=== PATIENT | female | born 1995 | race Caucasian/White ===

== ENCOUNTER → 2019-10-16 07:36 | Outpatient (CLI) | payer OTHER, SELFPAY ==
--- NOTE | 2019-10-16 08:04 | DI.US.S_ITS ---
PROCEDURE: US OB <= 14 WEEKS FETUS INDICATIONS: DATES, VIABILITY OUTSIDE/PRIOR DATING DATA: Last menstrual period (LMP): 08/27/19. LMP-based estimated date of delivery (GARY): 06/02/20. First dating scan (date and location): Today, 10/16/19 . Estimated date of delivery (GARY) from first dating scan: 06/10/20 . TECHNIQUE: Real-time scanning was performed of the fetus and maternal pelvic organs, with image documentation. Endovaginal scanning was also performed to better visualize the fetus and maternal ovaries. COMPARISON: None. FINDINGS: Embryo: There is a single living intrauterine gestation with heart rate 115 beats per minute and crown-rump length 1.5 cm which correlates with a gestational age of 6 weeks 2 days, +/-5 days. Measurement variability in dating: +/- 4 weeks by LMP, +/- 7 days by mean sac diameter (use before 6 weeks gestation if crown-rump length not able to be measured), +/- 5 days by crown-rump length (up to 8 weeks 6 days gestation), +/- 7 days by crown-rump length (up to 13 weeks 6 days gestation). Maternal organs: Ovaries normal considering gestational status . Limited images through the kidneys demonstrate no hydronephrosis. IMPRESSION: Single living intrauterine gestation with delivery date projected to be centered on 06/10/20. Follow-up anatomic survey at 21 weeks gestation is recommended. Dictated by: Cm Bobby M.D. on 10/16/2019 at 10:51 Approved by: Cm Bobby M.D. on 10/16/2019 at 10:54
== END ==
PROVIDERS: PCP Family Medicine; Referring Provider Family Medicine; Visit Provider Family Medicine
DX: Z34.01 Encounter for supervision of normal first pregnancy, first trimester (principal); Z3A.01 Less than 8 weeks gestation of pregnancy
CPT/HCPCS: 76801; 76830

== ENCOUNTER → 2019-10-31 11:24 | Outpatient (CLI) | payer OTHER, SELFPAY ==
[2019-10-31 12:38] LABS: Appearance Urine UA CLEAR; Bilirubin Urine UA NEGATIVE (NEGATIVE); Color Urine UA YELLOW; Glucose Urine UA NEGATIVE (Negative); Ketones Urine UA TRACE (NEGATIVE); Leukocyte Esterase Urine UA TRACE (NEGATIVE); Nitrite Urine UA NEGATIVE (Negative); Occult Blood Urine UA NEGATIVE (Negative); Protein Urine UA NEGATIVE (Negative); Specific Gravity Urine UA <=1.005 (1.000-1.035); Urobilinogen Urine UA 0.2 E.U./dL (0.2)
[2019-10-31 12:41] LABS: Bacteria Urine None Seen; RBC Urine None Seen (0-5/HPF)
[2019-10-31 12:47] LABS: WBC Urine 5-10/HPF (0-5/HPF)
[2019-10-31 13:04] LABS: Add Manual Diff / Slide Review NO; Basophils Absolute Auto 0 /uL (0-100); Basophils Percent Auto 0.2 % (0-2); Eosinophils Absolute Auto 200 /uL (0-450); Eosinophils Percent Auto 2.1 % (2-4); Hematocrit 40.4 % (36-46); Lymphocytes Absolute Auto 1500 /uL (1100-4500); Lymphocytes Percent Auto 14.6 % (25-40); Mean Corpuscular HGB Conc 34.6 % (30-36); Mean Corpuscular Hemoglobin 30.3 PG (26-34); Mean Corpuscular Volume 87.5 fL (80-100); Monocytes Absolute Auto 600 /uL (0-900); Neutrophils Absolute Auto 8000 /uL (1500-7000); Neutrophils Percent Auto 77.1 % (50-75); Platelet Count 349 X10^3/uL (150-400); Red Blood Cell Count 4.62 X10^6/uL (4.0-5.2); Red Cell Distribution Width 12.6 % (11.6-14.8); White Blood Cell Count 10.4 X10^3/uL (4.5-11.0)
[2019-11-01 09:19] LABS: Varicella IgG Antibody 585 index (Immune >165)
[2019-11-02 15:34] LABS: Hepatitis B Surface Antigen NEGATIVE s/c (NEGATIVE); Rubella Antibody IgG 28.3 IU/mL (>15)
[2019-11-02 15:54] LABS: HIV 1 & 2 Ab/Ag 4th Gen Combo NEGATIVE (NEGATIVE); Hep C Virus Ab w/Reflex Quant NEGATIVE s/c (NEGATIVE)
[2019-11-03 04:36] LABS: RPR Screen Non Reactive (Non Reactive)
== END ==
PROVIDERS: PCP Family Medicine; Referring Provider Family Medicine; Visit Provider Family Medicine
DX: Z34.01 Encounter for supervision of normal first pregnancy, first trimester (principal)
CPT/HCPCS: 36415; 80055; 81003; 81015; 86787; 86803; 86850; 86900; 86901; 87086; 87389

== ENCOUNTER → 2020-01-19 07:28 | Outpatient (CLI) | payer OTHER, SELFPAY ==
--- NOTE | 2020-01-19 07:28 | DI.US.S_ITS ---
PROCEDURE: US OB >= 14 WEEKS FETUS INDICATIONS: ANATOMY OUTSIDE/PRIOR DATING DATA: Last menstrual period (LMP): 08/27/19. LMP-based estimated date of delivery (GARY): 06/02/20 First dating scan (date and location): 10/16/19 Estimated date of delivery (GARY) from first dating scan: 06/10/20 TECHNIQUE: Real-time scanning was performed of the fetus, with image documentation and biometric measurements. Endovaginal scanning: Not needed COMPARISON: 10/16/19 FINDINGS: General: A single living intrauterine gestation is present. Presentation: Vertex. Placenta: Placental position is posterior , without previa. Amniotic fluid index: 15.2 cm, normal range is 5-24 cm. heart rate: 147 beats per minute. Maternal cervical canal: 3.5 cm long. Normal lower limit is 2.5 cm. biometrics: Biparietal diameter: 4.9 cm, 20 weeks 5 days Head circumference: 18.0 cm, 20 weeks 3 days Abdominal circumference: 15.2 cm, 20 weeks 3 days Femur length: 3.5 cm, 21 weeks 0 days Estimated gestational age from initial scan: 19 weeks 4 days Composite gestational age from present scan: 20 weeks 5 days Estimated weight and percentile: 367 g, upper 95th percentile Measurement variability for biometric dating: +/- 7 days from 14 weeks to 15 weeks 6 days gestation, +/- 10 days from 16 weeks to 21 weeks 6 days gestation, +/- 2 weeks from 22 weeks to 27 weeks 6 days gestation, +/- 3 weeks for 28 weeks gestation or later. weight reference: 4500 g or EFW >90/95% is considered macrosomia or large for gestational age. EFW <10% is small for gestational age. EFW 5% or less is considered intra-uterine growth restriction. Anatomic survey: Neuro: Ventricles are non-dilated at less than 10 mm. Cisterna magna is normal at 3-11 mm. Cerebellum is normal in size and morphology. Nuchal skin fold: Normal at less than 6 mm between 14-21 weeks gestational age. Face: Nose and lips, facial profile are not well seen due to positioning. Spine: No evidence for spina bifida. Heart: 4-chambered heart is present, with normal ventricular outflow tracts. Diaphragm: Diaphragm is intact. Stomach: Left-sided stomach is present. Kidneys: No hydronephrosis. Normal is less than 5 mm in 2nd trimester, less than 7 mm in 3rd trimester. Cord: 3-vessel cord has orthotopic insertion. Bladder: Normal in size. Extremities: All 4 extremities identified. IMPRESSION: Single living intrauterine gestation with appropriate interval growth and no anomaly seen. The facial area was not well visualized due to positioning. Follow-up limited Ob ultrasound in 2 weeks is recommended to complete the anatomic survey. Please note that the current weight is at the upper 95th percentile for current gestational age. Dictated by: Cm Bobby M.D. on 01/19/2020 at 15:44 Approved by: Cm Bobby M.D. on 01/19/2020 at 15:48
== END ==
PROVIDERS: PCP Family Medicine; Referring Provider Family Medicine; Visit Provider Family Medicine
DX: Z34.92 Encounter for supervision of normal pregnancy, unspecified, second trimester (principal); Z3A.20 20 weeks gestation of pregnancy
CPT/HCPCS: 76811

== ENCOUNTER → 2020-01-23 11:10 | Outpatient (CLI) | payer OTHER, SELFPAY ==
[2020-01-23 13:26] LABS: GTT (PREG) 1 Hour PP 50gm Dose 136 mg/dL (76-139)
== END ==
PROVIDERS: PCP Family Medicine; Referring Provider Family Medicine; Visit Provider Family Medicine
DX: Z34.90 Encounter for supervision of normal pregnancy, unspecified, unspecified trimester (principal)
CPT/HCPCS: 36415; 82950

== ENCOUNTER → 2020-02-12 07:13 | Outpatient (CLI) | payer OTHER, SELFPAY ==
--- NOTE | 2020-02-12 07:14 | DI.US.S_ITS ---
PROCEDURE: US OB FOLLOW UP INDICATIONS: RE-EVALUATE FACE OUTSIDE/PRIOR DATING DATA: Last menstrual period (LMP): 08/27/19. LMP-based estimated date of delivery (GARY): 06/02/20 . First dating scan (date and location): 10/16/19 . Estimated date of delivery (GARY) from first dating scan: 06/10/20, +/-5 days. . TECHNIQUE: Real-time scanning was performed of the fetus, with image documentation. Endovaginal scanning: Not needed. COMPARISON: None. FINDINGS: A single living intrauterine gestation is present. Presentation: Breech. Placenta: Placental position is posterior , without previa. Amniotic fluid index: 16.1 cm, normal range is 5-24 cm. heart rate: 140 beats per minute. Maternal cervical canal: 3.6 cm long. Normal lower limit is 2.5 cm. Estimated gestational age from initial scan: 23 weeks 0 days . Note: The facial region was effectively visualized over the course of this study, completing the anatomic survey. IMPRESSION: Completion of the anatomic survey, no anomaly found. Delivery date is projected to be centered on 06/10/20, +/-5 days. Dictated by: Cm Bobby M.D. on 02/12/2020 at 12:59 Approved by: Cm Bobby M.D. on 02/12/2020 at 13:02
== END ==
PROVIDERS: PCP Family Medicine; Referring Provider Family Medicine; Visit Provider Family Medicine
DX: Z34.02 Encounter for supervision of normal first pregnancy, second trimester (principal); Z3A.23 23 weeks gestation of pregnancy
CPT/HCPCS: 76816

== ENCOUNTER → 2020-03-07 15:44 | Outpatient (CLI) | payer OTHER, SELFPAY ==
--- NOTE | 2020-03-07 15:46 | DI.US.S_ITS ---
PROCEDURE: US OB LIMITED INDICATIONS: LARGE FOR GESTATIONAL AGE OUTSIDE/PRIOR DATING DATA: Last menstrual period (LMP): August 27, 2019 . LMP-based estimated date of delivery (GARY): June 02, 2020 . First dating scan (date and location): October 16, 2019, [facility] . Estimated date of delivery (GARY) from first dating scan: June 10, 2020 . TECHNIQUE: Real-time scanning was performed of the fetus, with image documentation and biometric measurements. Endovaginal scanning: Not performed COMPARISON: None. FINDINGS: General: A single living intrauterine gestation is present. Presentation: Vertex. Placenta: Placental position is posterior , without previa. Amniotic fluid index: 18.2 cm, normal range is 5-24 cm. heart rate: 128 beats per minute. Maternal cervical canal: 3.0 cm long. Normal lower limit is 2.5 cm. biometrics: Biparietal diameter: 7.1 cm, 28 weeks, 4 days Head circumference: 24.8 cm, 27 weeks, 0 days Abdominal circumference: 21.9 cm, 26 weeks, 3 days Femur length: 5.0 cm, 26 weeks, 6 days Estimated gestational age from initial scan: 26 weeks, 3 days Composite gestational age from present scan: 27 weeks, 2 days Estimated weight and percentile: 978 g, 52nd percentile Measurement variability for biometric dating: +/- 7 days from 14 weeks to 15 weeks 6 days gestation, +/- 10 days from 16 weeks to 21 weeks 6 days gestation, +/- 2 weeks from 22 weeks to 27 weeks 6 days gestation, +/- 3 weeks for 28 weeks gestation or later. weight reference: 4500 g or EFW >90/95% is considered macrosomia or large for gestational age. EFW <10% is small for gestational age. EFW 5% or less is considered intra-uterine growth restriction. Other: Not applicable. IMPRESSION: 1. Single live intrauterine gestation with a composite gestational age of 27 weeks, 2 days which is concordant with the dates by the initial scan. 2. Growth at 52nd percentile. Dictated by: Dot Franco M.D. on 03/07/2020 at 17:18 Approved by: Dot Franco M.D. on 03/07/2020 at 17:21
[2020-03-07 17:51] LABS: Add Manual Diff / Slide Review NO; Basophils Absolute Auto 0 /uL (0-100); Basophils Percent Auto 0.2 % (0-2); Eosinophils Absolute Auto 300 /uL (0-450); Eosinophils Percent Auto 2.6 % (2-4); Hematocrit 33.2 % (36-46); Hemoglobin 11.4 g/dL (12.0-16.0); Lymphocytes Absolute Auto 1600 /uL (1100-4500); Lymphocytes Percent Auto 13.1 % (25-40); Mean Corpuscular HGB Conc 34.4 % (30-36); Mean Corpuscular Hemoglobin 31.2 PG (26-34); Mean Corpuscular Volume 90.6 fL (80-100); Monocytes Absolute Auto 900 /uL (0-900); Monocytes Percent Auto 7.3 % (3-14); Neutrophils Absolute Auto 9500 /uL (1500-7000); Neutrophils Percent Auto 76.8 % (50-75); Platelet Count 308 X10^3/uL (150-400); Red Blood Cell Count 3.66 X10^6/uL (4.0-5.2); White Blood Cell Count 12.4 X10^3/uL (4.5-11.0)
[2020-03-07 18:05] LABS: GTT (PREG) 1 Hour PP 50gm Dose 105 mg/dL (76-139)
== END ==
PROVIDERS: PCP Family Medicine; Referring Provider Family Medicine; Visit Provider Family Medicine
DX: Z36.88 Encounter for antenatal screening for fetal macrosomia (principal); Z3A.27 27 weeks gestation of pregnancy
CPT/HCPCS: 36415; 76815; 82950; 85025

== ENCOUNTER → 2020-05-11 14:32 | Outpatient (CLI) | payer OTHER, SELFPAY ==
[2020-05-12 12:47] LABS: Strep Grp B PCR POS for Grp B Strep
== END ==
PROVIDERS: PCP Family Medicine; Visit Provider Family Medicine
DX: Z34.90 Encounter for supervision of normal pregnancy, unspecified, unspecified trimester (principal); Z3A.36 36 weeks gestation of pregnancy
CPT/HCPCS: 87653

== ENCOUNTER 2020-06-06 14:23 | Outpatient (CLI) | payer OTHER, SELFPAY ==
--- NOTE | 2020-06-06 15:11 | PM.OBTRLD ---
Visit Information Visit Information Date of evaluation: 06/06/20 Primary OB Provider: Marva Sommer Reason for Evaluation: Yes non-stress test non-stress test reason: decreased movement Comments/Additional reasons for admission: 24-year-old at 39 weeks and 5 days with decreased movement today. She did report that she felt the baby moving more on her way to the center today. Denies bleeding or leaking fluid. Vital Signs Vital Signs: Temperature 36.1? blood pressure 125/76 heart rate 91 PFSH Medical History (Updated 06/06/20 @ 15:13 by Pia Barotn DO) Asthma (~2019) Surgical History (Updated 10/29/19 @ 11:27 by Martine Palacios RN) No history of previous surgery Family History (Updated 10/21/19 @ 08:09 by Martine Palacios RN) Grandmother Cancer Mother Migraine Father Hypertension Grandfather No problems noted. Grandfather COPD (chronic obstructive pulmonary disease) Grandmother No problems noted. Social History marital status: household members: spouse pets and animals: Yes (X 1 cat and X 1 dog) education level: college occupational status: employed current occupational exposures/hazards: Yes Previous occupational history: Admin. Ass niles/hoahaoism: [employer] special niles needs: No Smoking Status: Never smoker second hand exposure: No alcohol intake: former substance use type: does not use Evaluation Evaluation Baseline heart rate: 115 Variability: Moderate (11-25) monitor accelerations: Present monitor decelerations: Absent Category of Tracing: Reactive Diagnosis, Plan/Disposition Final Diagnosis (1) 39 weeks gestation of : Status: Acute Plan/Disposition Plan: Reactive NST for decreased movement. Patient reported feeling move prior to the center and throughout her stay in the center. Return for induction tomorrow night. OB Disposition: home
== END 2020-06-06 15:04 | disposition home or self-care (01) ==
LOC: LABOR 14:46 → OB 06-07 07:03
PROVIDERS: PCP Family Medicine; Referring Provider Family Medicine; Visit Provider Family Medicine
DX: O36.8130 Decreased fetal movements, third trimester, not applicable or unspecified (principal); Z3A.39 39 weeks gestation of pregnancy
CPT/HCPCS: 59025; G0378; G0379

== ENCOUNTER 2020-06-07 19:55 | Inpatient (IN) | payer OTHER, SELFPAY ==
[2020-06-07] MEDS: miSOPROStoL 25 MCG TABLET 50 MCG PO (20:47)
[2020-06-07 21:44] LABS: Add Manual Diff / Slide Review NO; Basophils Absolute Auto 100 /uL (0-100); Basophils Percent Auto 0.6 % (0-2); Eosinophils Absolute Auto 100 /uL (0-450); Eosinophils Percent Auto 1.5 % (2-4); Hematocrit 34.7 % (36-46); Hemoglobin 11.8 g/dL (12.0-16.0); Lymphocytes Absolute Auto 1500 /uL (1100-4500); Mean Corpuscular Hemoglobin 29.8 PG (26-34); Mean Corpuscular Volume 87.4 fL (80-100); Monocytes Absolute Auto 800 /uL (0-900); Monocytes Percent Auto 8.5 % (3-14); Neutrophils Absolute Auto 6900 /uL (1500-7000); Neutrophils Percent Auto 73.4 % (50-75); Platelet Count 254 X10^3/uL (150-400); Red Blood Cell Count 3.97 X10^6/uL (4.0-5.2); White Blood Cell Count 9.4 X10^3/uL (4.5-11.0)
[2020-06-07 21:54] VITALS: BP 123/81
[2020-06-07 23:00] LABS: COVID19 -Nasal RAPID Negative (Negative)
[2020-06-08] MEDS: LACTATED RINGERS 1,000 ML 100 ML IV ×2 (03:57→11:45)
[2020-06-08] MEDS: PENICILLIN G POTASSIUM 5,000,000 UNIT in DEXTROSE 5% IN WATER 250 ML IV (03:57)
--- NOTE | 2020-06-08 07:36 | P.HPOB_ITS ---
OB HPI Date/Time Date of admission: 06/07/20 Date Patient Seen: 06/08/20 Time Patient Seen: 07:36 History of Present Condition Chief complaint: : 1 Para: 0 Estimated Date of Delivery: 06/08/20 Estimated Gestational Age (weeks): 40w0d Narrative: Leti Morejon is a 24 year old at 40w0d who presented last night for elective IOL due to her 's upcoming deployment. Pt denies any contractions, vaginal bleeding, or LOF. She lost her mucus plug after the membrane sweep in clinic last week. She has been feeling the baby move regularly. Indications Indication for induction OB: other (elective - 's upcoming deployment) History of Present care: good care, initiated at week # (7) and pounds weight gain (34) Dating criteria: based on 1st trimester US only Obstetrical complications: none Medical complications: none Preadmission Labs Blood type: O (+) positive -: Antibody screen: negative, GBS status: positive, HBsAG: negative, HIV: negative and RPR/VDLR: negative -: Rubella: immune and Varicella: immune HCT: 33.2 HCAB: negative PAP: Normal (06/2018) 1 hr GTT: 105 Evaluation Evaluation Baseline heart rate: 120 Variability: Moderate (11-25) monitor accelerations: Present monitor decelerations: Absent Contraction Frequency (minutes): 4 Uterine Contraction Intensity: Mild Status: Category l Cervical dilation (cm): 2 Cervical effacement (%): 80 station: -1 Laboratory results: Laboratory Tests 06/07/20 06/07/20 06/07/20 21:30 21:30 21:30 WBC 9.4 RBC 3.97 L Hgb 11.8 L Hct 34.7 L MCV 87.4 MCH 29.8 MCHC 34.0 RDW 15.0 H Plt Count 254 Neut % (Auto) 73.4 Lymph % (Auto) 16.0 L [place] % (Auto) 8.5 Eos % (Auto) 1.5 L Baso % (Auto) 0.6 Neut # (Auto) 6900 Lymph # (Auto) 1500 [place] # (Auto) 800 Eos # (Auto) 100 Baso # (Auto) 100 SARS-CoV-2 (PCR) Negative Blood Type O Positive Antibody Screen Negative Comments: After informed consent, AROM performed with production of clear fluid. [facility] Medical History (Updated 06/06/20 @ 15:13 by Pia Barton DO) Asthma (~2019) Surgical History (Updated 10/29/19 @ 11:27 by Martine Palacios, HARISH) No history of previous surgery Family History (Updated 10/21/19 @ 08:09 by Martine Palacios, HARISH) Grandmother Cancer Mother Migraine Father Hypertension Grandfather No problems noted. Grandfather COPD (chronic obstructive pulmonary disease) Grandmother No problems noted. 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[employer] special niles needs: No Smoking Status: Never smoker second hand exposure: No alcohol intake: former substance use type: does not use Meds Home Medications and Allergies Home Medications Medication Instructions Recorded Confirmed Type albuterol sulfate 90 mcg/actuation 1 inhalation INHALATION Q4-6H PRN 10/21/19 06/07/20 History breath activated powder inhaler prenat.vits,valente,ads-ffhx-halxi 1 tab PO DAILY 10/21/19 06/07/20 History Allergies Allergy/AdvReac Type Severity Reaction Status Date / Time Sulfa (Sulfonamide Allergy Severe Facial Verified 05/18/20 16:06 Antibiotics) Swelling Exam Const General: cooperative, healthy appearing and comfortable Orientation: alert, awake and oriented x3 Resp Effort & Inspection: normal respiratory effort Auscultation: clear to auscultation bilaterally Cardio Rate: regular rate Rhythm: regular rhythm Heart Sounds: S1 normal, S2 normal and no murmurs GI Inspection: non-distended Palpation: soft and No tender Other: gravid Presentation: vertex Estimated Weight (lbs): 8 Extrem General: no clubbing, cyanosis or edema Objective Labs Result Diagrams: 06/07/20 21:30 Labs: Laboratory Results - last 24 hr 06/07/20 06/07/20 06/07/20 21:30 21:30 21:30 WBC 9.4 RBC 3.97 L Hgb 11.8 L Hct 34.7 L MCV 87.4 MCH 29.8 MCHC 34.0 RDW 15.0 H Plt Count 254 Neut % (Auto) 73.4 Lymph % (Auto) 16.0 L [place] % (Auto) 8.5 Eos % (Auto) 1.5 L Baso % (Auto) 0.6 Neut # (Auto) 6900 Lymph # (Auto) 1500 [place] # (Auto) 800 Eos # (Auto) 100 Baso # (Auto) 100 SARS-CoV-2 (PCR) Negative Blood Type O Positive Antibody Screen Negative Assessment and Plan Assessment and Plan Assessment and Plan narrative: 24yo at 40w0d who presented for elective IOL. GBS positive, Rh positive. Pt received one dose of cytotec overnight. AROM performed this morning with production of clear fluid. - Expectant management, anticipate - FHT reassuring - GBS positive, penicillin initiated - already received 2 doses - Epidural for pain control when desired
[2020-06-08] MEDS: OXYTOCIN PREMIX 30 UNIT/500 ML PLAST..BAG IV (07:40)
[2020-06-08] MEDS: PENICILLIN G POTASSIUM 3,000,000 UNIT/50 ML FROZ.PIGGY 100 UNIT IV ×2 (07:57→12:02)
--- NOTE | 2020-06-08 14:45 | PM.OBPNLAB ---
Date/Time Date Patient Seen: 06/08/20 Time Patient Seen: 14:45 Pain Control Pain control: epidural Pelvic Exam Dilation (cm): 10 Effacement (%): 100 station: +1 Amniotic membrane status: Ruptured Contractions Monitor mode: External Pitocin rate (mU/min): 3 Contraction frequency (min): 2 Contraction duration (min): 1 Contraction pattern: Regular Contraction phase: Resting Contraction intensity: Strong/Firm Status status: Category ll Heart Rate Baseline: 110 Monitor Accelerations: Present Monitor Decelerations: Early Monitor Variability: Moderate Assessment and Plan Comments: 24yo at 40w0d who presented for elective IOL. GBS positive, Rh positive. Pt received one dose of cytotec overnight. AROM performed this morning with production of clear fluid. Currently on pitocin. Complete and pushing, with slow but consistent descent thus far. - Expectant management, anticipate - FHT reassuring. Pt with decels with contractions. - GBS positive, has received adequate prophylaxis with penicillin - Epidural in place
[2020-06-08] MEDS: METHYLERGONOVINE 0.2 MG/ML VIAL IM (16:58)
[2020-06-08 17:04] LABS: Add Manual Diff / Slide Review NO; Basophils Absolute Auto 100 /uL (0-100); Basophils Percent Auto 0.4 % (0-2); Eosinophils Absolute Auto 0 /uL (0-450); Eosinophils Percent Auto 0.1 % (2-4); Hematocrit 28.9 % (36-46); Hemoglobin 9.8 g/dL (12.0-16.0); Lymphocytes Absolute Auto 900 /uL (1100-4500); Lymphocytes Percent Auto 4.3 % (25-40); Mean Corpuscular HGB Conc 33.8 % (30-36); Mean Corpuscular Hemoglobin 29.5 PG (26-34); Mean Corpuscular Volume 87.5 fL (80-100); Monocytes Absolute Auto 1400 /uL (0-900); Monocytes Percent Auto 6.6 % (3-14); Neutrophils Absolute Auto 19000 /uL (1500-7000); Neutrophils Percent Auto 88.6 % (50-75); Platelet Count 250 X10^3/uL (150-400); Red Cell Distribution Width 14.9 % (11.6-14.8); White Blood Cell Count 21.5 X10^3/uL (4.5-11.0)
[2020-06-08] MEDS: TRANEXAMIC ACID 1,000 MG VIAL 1000 MG (17:18)
[2020-06-08 17:37] VITALS: BP 101/65; PULSE 87; RESP 16; TEMP 36.2
[2020-06-08 17:39] VITALS: BP 97/70; PULSE 89; RESP 16; TEMP 35.8
[2020-06-08 17:41] VITALS: BP 108/57; PULSE 91; RESP 16; TEMP 36.6
--- NOTE | 2020-06-08 17:42 | TAR.TRANSNT ---
Emergent blood transfusion started. 2 units of PRBC brought up from lab at 1715, primed and hung first unit at 1720 at 200/hr, patient tolerating well. 2nd unit hung at 1730 d/t needing another iv site. 2nd unit running at 100/hr. Patient tolerating well.
--- NOTE | 2020-06-08 17:50 | P.PCNOB_ITS ---
Labor & Delivery Delivery date: 06/08/20 Estimated blood loss (mL): 1,500 Anesthesia Type: Epidural Complications: hemorrhage Narrative: PROCEDURE: at 40w0d presented for elective IOL and was admitted to Labor and Delivery. She received cytotec for induction. The patient progressed through the 1st stage over 6.5 hours. Pitocin was initiated. After adequate prophylaxis with penicillin for GBS status, AROM was performed with production of clear fluid. Pain was controlled with an epidural. The patient progressed through the 2nd stage over 2 hours. The pt was noted to have deep variable decels with each contraction, that were taking progressively longer to return to baseline. There continued to be descent, but it was quite slow. There was some perineal swelling beginning as well. Due to nonreassuring heart tones, still remote from delivery, the decision was made to proceed with vacuum-assisted vaginal delivery. Patient was evaluated and noted to have adequate pain control. Patient counseled on risks/benefits/alternatives of vacuum assisted delivery. Risks were discussed and they included but were not limited to a need for an episiotomy, pressure erwin on the baby, lacerations to the baby's scalp/face, serious damage including skull fracture, the need to proceed with an abdominal procedure, , paralysis of the baby's arms and/or legs, neurological impairment of the baby. Alternatives would include CS or further observation depending on status. Questions were answered and the patient verbalized an understanding and decided to proceed. Cervix completely dilated and maternal bladder emptied. Maternal pelvis was noted to be adequate. Vertex presentation in the OA position and +1 station. Moulding present, Caput present Vacuum cup of the Kiwi OmniCup applied to the flexion point without difficulty and during contractions, pressure applied between 400-600 mmHg as indicated in the green zone of the pressure gauge. delivered after 3 pulls with 0 pop-offs over an intact perineum. The anterior shoulder and remainder of the infant was delivered without difficulty. The cried spontaneously immediately after delivery. Cord clamped and cut after it stopped pulsating. was examined no evidence of injury noted. APGARs were 9/9. Vagina and perineum were inspected. It was noted to be a 4th degree laceration. It was explored and found to be as described above incorporating the vaginal mucosa, subcutaneous, muscle, sphincter and rectal mucosa layers. The laceration was noted to be bleeding profusely from multiple locations. The length of the laceration was noted to be approximately 4cm in the vagina, and 1cm in the rectal mucosa. A digital exam was performed to better evaluate the laceration and the anal sphincter. Allis clamps were placed at the ends of the ruptured sphincter. The repair of the rectal mucosa was started before the apex. It was reapproximated using 4-O Chromic in a running fashion to the anal sphincter and perineal body. The underlying rectal fascial layer was closed in an imbricating fashion to further support the repair of the extension and close potential space between the vaginal mucosa and the rectum. The internal rectal sphincter was repaired with O-Vicryl in an end to end fashion using interupted sutures at the posterior, superior, anterior, inferior aspects of the sphincter sheath and muscle. The 1st and 2nd degree vaginal laceration and perineal body was then completed in the usual fashion using 2-O Vicryl. A final digital rectal exam was performed and confirmed no sutures present. Hemostasis was noted. A left periurethral laceration that was also bleeding profusely was then closed with 4-O Chromic with excellent hemostasis, with red jany catheter in place at the time to protect the urethra. After all repairs were complete, a tucker catheter was then inserted. While completing the repairs, due to their brisk bleeding, lap pads were used to apply pressure to the areas not actively being sutured. Frequent fundal massage was completed, intermittently noting some mild uterine atony that responded to massage. After the repairs were complete, and hemostasis maintained, the pt was noted to have lost 1500cc of blood during the process. Cytotec and methergine were given to ensure there would be no further issues with uterine atony. The pt was noted to be very pale, feeling very lightheaded. BP was noted to be in the 70s/50s. The bed was reclined. LR bolus was initiated. The pt then began to get very drowsy and nauseous, and was barely able to speak. 2 units of PRBCs were ordered STAT, and were transfused simultaneously along with a bolus of NS. STAT H/H obtained prior to the infusion returned with a Hgb of 9.8. The pts BP improved to the 100s/70s, and she began to feel improved. She had adequate urine output. At the time this provider left, the pt was stable with BPs in the 110s/70s, sitting in bed, speaking easily. PREPROCEDURE DIAGNOSIS: Intrauterine at 40w0d GBS positive RH positive POSTPROCEDURE DIAGNOSIS: Intrauterine at 40w0d, delivered Same as preprocedure Nonreassuring heart tones Vacuum-assisted vaginal delivery 4th degree perineal laceration hemorrhage PROCEDURE: Vacuum-assisted vaginal delivery INDUCTION: Yes, cytotec LABOR AUGMENTATION: Pitocin, AROM ROM APPEARANCE: Clear BABY A DELIVERY TIME: 15:53 BABY A OUTCOME: Viable BABY A SEX: Male BABY A WEIGHT: 7lb15.6oz BABY A PRESENTATION: Vertex BABY A POSITION: SUNSHINE BABY A NUCHAL CORD: No BABY A # CORD VESSELS: 3 BABY A CORD GASES OBTAINED: No, spontaneous cry immediately after delivery PLACENTA DELIVERY TIME: 15:59 PLACENTAL DELIVERY TYPE: Spontaneous PLACENTA APPEARANCE: Intact [place] Baby 1: Infant gender: Male score (1 min): 9 score (5 min): 9 Plan for aftercare: Routine care and Other (Tucker to remain in place for 12 hours, Docusate and Dulcolax scheduled)
[2020-06-08] MEDS: SODIUM CHLORIDE 0.9% 1,000 ML 1000 ML IV (18:05)
[2020-06-08] MEDS: miSOPROStoL 200 MCG TABLET 800 MCG PR (18:06)
[2020-06-08] MEDS: DOCUSATE 100 MG CAPSULE PO (21:28)
[2020-06-08] MEDS: IBUPROFEN 600 MG TABLET PO (21:28)
[2020-06-08] MEDS: DERMOPLAST SPRAY 20% 60 ML 1 SPRAY TOP (21:51)
[2020-06-08 22:37] VITALS: BP 114/70; PULSE 90; RESP 16; TEMP 36.7
[2020-06-09] MEDS: OXYCODONE/ACETAMINOPHEN 5/325 TABLET 1 TAB PO ×5 (02:32→21:06)
[2020-06-09] MEDS: IBUPROFEN 600 MG TABLET PO ×4 (03:32→21:06)
[2020-06-09 06:19] LABS: Add Manual Diff / Slide Review NO; Basophils Absolute Auto 100 /uL (0-100); Basophils Percent Auto 0.6 % (0-2); Eosinophils Absolute Auto 100 /uL (0-450); Eosinophils Percent Auto 0.3 % (2-4); Hematocrit 28.5 % (36-46); Hemoglobin 9.8 g/dL (12.0-16.0); Lymphocytes Absolute Auto 1400 /uL (1100-4500); Mean Corpuscular HGB Conc 34.2 % (30-36); Mean Corpuscular Volume 87.7 fL (80-100); Monocytes Absolute Auto 1200 /uL (0-900); Monocytes Percent Auto 7.8 % (3-14); Neutrophils Absolute Auto 13000 /uL (1500-7000); Neutrophils Percent Auto 82.3 % (50-75); Platelet Count 169 X10^3/uL (150-400); Red Blood Cell Count 3.25 X10^6/uL (4.0-5.2); Red Cell Distribution Width 14.3 % (11.6-14.8); White Blood Cell Count 15.8 X10^3/uL (4.5-11.0)
[2020-06-09] MEDS: FERROUS SULFATE 325 MG TABLET PO (09:01)
[2020-06-09] MEDS: DOCUSATE 100 MG CAPSULE PO ×2 (09:01→21:07)
[2020-06-09] MEDS: PRENATAL VIT,CALC/IRON/FOLIC 1 TABLET 1 TAB PO (09:01)
[2020-06-09 09:02] VITALS: TEMP 36.8
[2020-06-09 09:06] VITALS: TEMP 36.8
[2020-06-09] MEDS: BISACODYL 10 MG SUPP PR (09:09)
[2020-06-09 13:00] VITALS: TEMP 36.9
--- NOTE | 2020-06-09 16:29 | P.PNOB_ITS ---
Subjective - OB Subjective Date Patient Seen: 06/09/20 Time Patient Seen: 08:00 Interval history: The pt reports overall feeling okay this morning. She feels slightly lightheaded and SOB when standing. She denies significant palpitations. Her lochia is decreasing appropriately. Her pain is adequately controlled. She has not yet urinated, but did have a BM last night without significant discomfort. Baby is well. Exam Vital Signs (past 8 hours): - 06/09/20 09:02 06/09/20 09:06 06/09/20 13:00 Temperature 98.2 F 98.2 F 98.4 F Narrative Exam Narrative: Gen: NAD, sitting comfortably in bed, appears well CV: RRR, no murmurs Resp: clear to auscultation bilaterally Abd: soft, appropriately tender, fundus firm and below the umbilicus, nondistended Ext: no edema Resp Auscultation: clear to auscultation bilaterally Cardio Rate: regular rate Rhythm: regular rhythm Heart Sounds: S1 normal, S2 normal and no murmurs GI Inspection: non-distended Palpation: soft, No guarding and tender (appropriately tender) Auscultation: normal bowel sounds Other: fundus firm and below the umbilicus Extrem Right upper extremity: no edema Objective Labs Result Diagrams: 06/09/20 05:55 Labs: Laboratory Results - last 24 hr 06/07/20 06/08/20 06/09/20 21:30 17:00 05:55 WBC 21.5 H D 15.8 H RBC 3.30 L 3.25 L Hgb 9.8 L 9.8 L Hct 28.9 L 28.5 L MCV 87.5 87.7 MCH 29.5 30.0 MCHC 33.8 34.2 RDW 14.9 H 14.3 Plt Count 250 169 Neut % (Auto) 88.6 H 82.3 H Lymph % (Auto) 4.3 L 9.0 L [place] % (Auto) 6.6 7.8 Eos % (Auto) 0.1 L 0.3 L Baso % (Auto) 0.4 0.6 Neut # (Auto) 32829 H 90485 H Lymph # (Auto) 900 L 1400 [place] # (Auto) 1400 H 1200 H Eos # (Auto) 0 100 Baso # (Auto) 100 100 Blood Type O Positive Antibody Screen Negative Crossmatch See Detail Assessment & Plan Plan Comments: Pt is a 24yo PPD#1 s/p vacuum-assisted vaginal delivery with resultant 4th degree perineal laceration and hemorrhage. Received 2 units PRBCs immediately after delivery. H/H stable, pt doing well overall. - Normal care - support - Repeat H/H tomorrow - Continue stool softeners Time Spent With Patient Time: Total time spent is greater than 50% in coordination of care (as documented) at patient's floor/unit and/or counseling patient: Time with patient: 15-24 minutes
[2020-06-10] MEDS: OXYCODONE/ACETAMINOPHEN 5/325 TABLET 1 TAB PO ×2 (01:02→07:16)
[2020-06-10] MEDS: IBUPROFEN 600 MG TABLET PO ×2 (03:14→09:22)
[2020-06-10 05:42] LABS: Add Manual Diff / Slide Review NO; Basophils Absolute Auto 100 /uL (0-100); Basophils Percent Auto 0.6 % (0-2); Eosinophils Absolute Auto 200 /uL (0-450); Eosinophils Percent Auto 1.9 % (2-4); Hematocrit 25.8 % (36-46); Hemoglobin 8.8 g/dL (12.0-16.0); Lymphocytes Absolute Auto 2000 /uL (1100-4500); Lymphocytes Percent Auto 16.4 % (25-40); Mean Corpuscular Hemoglobin 30.2 PG (26-34); Mean Corpuscular Volume 88.8 fL (80-100); Monocytes Absolute Auto 800 /uL (0-900); Monocytes Percent Auto 6.5 % (3-14); Neutrophils Absolute Auto 9200 /uL (1500-7000); Neutrophils Percent Auto 74.6 % (50-75); Platelet Count 173 X10^3/uL (150-400); Red Cell Distribution Width 14.7 % (11.6-14.8); White Blood Cell Count 12.3 X10^3/uL (4.5-11.0)
--- NOTE | 2020-06-10 08:21 | PM.OBDS.1 ---
Discharge Providers Provider Date of admission: 06/07/20 19:55 Discharge Date: 06/10/20 Primary care physician: Marva Sommer MD Consults: 06/09/20 17:52 Consult to [employer] Routine Comment: Discharge provider: Marva Sommer MD Summary Hospital Course Date Patient Seen: 06/10/20 Time Patient Seen: 07:45 Diagnoses: 40w0d gestation Rh positive GBS positive Vacuum-assisted vaginal delivery 4th degree perineal laceration hemorrhage Acute blood loss anemia Hospital Course: The pt presented for elective IOL. She received cytotec and then pitocin for induction. After adequate GBS prophylaxis with penicillin, AROM was performed with clear fluid present. The pt received an epidural for pain control. She progressed to complete. There were recurrent, deep decelerations taking progressively longer to return to baseline. The pt was still remote from delivery. The decision was made to proceed with vacuum-assisted vaginal delivery due to nonreassuring heart tones. The baby delivered easily with the vacuum, APGARs 9/9. After delivery, the pt was noted to have a 4th degree perineal and left periurethral laceration that were both bleeding profusely. These were repaired, with frequent uterine massage noting mild uterine atony intermittently. The pt was noted to have 1500cc EBL. She was given cytotec, methergine, and tranexamic acid to ensure there were not further issues with uterine tone. After repair, the incisions were hemostatic. The pt was feeling very lightheaded and was hypotensive. She was STAT transfused 2 units PRBCs and bolused with LR and then NS. The pt responded well. Her BP normalized. There were no additional complications . Her lochia decreased appropriately. She was started on an iron supplement for her anemia. She was continued on stool softeners, and had two non-painful BMs . She will continue the iron and stool softeners at home. She was ambulating and voiding without difficulty. She was with good latch with the nipple shield. She will f/u in clinic in 2 weeks. Peripartum Data Delivery Method: Assisted Delivery Laceration Description: Periurethral - 1st Degree and Perineal - 4th Degree Episiotomy description: None Procedures: Vacuum-assisted vaginal delivery 4th degree perineal laceration repair complications: perineal laceration, transfusion and uterine atony 1: Gender: Male Disposition of : home Discharge Diagnosis (1) Vacuum-assisted vaginal delivery: Status: Acute (2) Fourth degree perineal laceration: Status: Acute (3) hemorrhage: Status: Acute (4) Maternal blood transfusion: Status: Acute Time Spent with Patient Time attestation: Total time spent providing and/or coordinating discharge services: Objective Labs Result Diagrams: 06/10/20 02:20 Labs: Laboratory Results - last 24 hr 06/10/20 02:20 WBC 12.3 H RBC 2.90 L Hgb 8.8 L Hct 25.8 L MCV 88.8 MCH 30.2 MCHC 34.0 RDW 14.7 Plt Count 173 Neut % (Auto) 74.6 Lymph % (Auto) 16.4 L Thomas % (Auto) 6.5 Eos % (Auto) 1.9 L Baso % (Auto) 0.6 Neut # (Auto) 9200 H Lymph # (Auto) 2000 Thomas # (Auto) 800 Eos # (Auto) 200 Baso # (Auto) 100 Discharge Plan Discharge Plan Patient Disposition: Home Discharge orders & Medications Prescriptions: New acetaminophen 325 mg Tablet 650 mg PO Q6HR PRN (Reason: Pain, Mild (1-3)) Qty: 60 RF: 0 oxycodone-acetaminophen 5-325 mg Tablet 1 tab PO Q4HR PRN (Reason: Pain, Moderate (4-6)) Qty: 20 RF: 0 bisacodyl 10 mg Suppository 10 mg TX DAILY Qty: 30 RF: 0 ferrous sulfate 325 mg (65 mg iron) Tablet 325 mg PO DAILY Qty: 30 RF: 0 docusate sodium [DOK] 100 mg Capsule 100 mg PO BID Qty: 60 RF: 0 ibuprofen 600 mg Tablet 600 mg PO Q6HR PRN (Reason: Pain, Mild (1-3)) Qty: 60 RF: 0 Continued prenat.vits,valente,[id number] Tablet 1 tab PO DAILY RF: 0 albuterol sulfate 90 mcg/actuation aerosol powdr breath activated 1 inhalation INHALATION Q4-6H PRN (Reason: Wheezing) RF: 0 Follow up/Referrals: Marva Sommer MD [Primary Care Provider] - 2 Weeks (Please follow up with Dr. Sommer on saturday at 1:45pm during baby's appointment to schedule a 2 week follow up. If you have any questions/concerns or need to reschedule please call .) Diet/Activity/Treatments Diet: Diet as Tolerated and Regular Skin/Wound/Dressing Care Report to your healthcare provider any signs of infection, such as:: chills, fever, increased pain and unusual drainage Visit Report/Discharge Packet Instructions: DI for Labor and Delivery, Vaginal Stand Alone Forms: Discharge: Care Visit Report Forms: Patient Portal/API, Stroke Signs & Symptoms Discharge Data Primary Care Provider: Marva Sommer Discharges patient from system. Discharge Date/Time: 06/10/20 11:07
[2020-06-10 08:36] VITALS: BP 99/62; PULSE 74; RESP 17; TEMP 37
[2020-06-10] MEDS: PRENATAL VIT,CALC/IRON/FOLIC 1 TABLET 1 TAB PO (09:19)
[2020-06-10] MEDS: FERROUS SULFATE 325 MG TABLET PO (09:19)
[2020-06-10] MEDS: DOCUSATE 100 MG CAPSULE PO (09:19)
== END 2020-06-10 11:07 | disposition home or self-care (01) | DRG 768 ==
PROVIDERS: Admitting Provider Family Medicine; PCP Family Medicine; Referring Provider Family Medicine; Visit Provider Family Medicine
DX: O99.824 Streptococcus B carrier state complicating childbirth (principal); Z37.0 Single live birth; D62 Acute posthemorrhagic anemia; Z3A.40 40 weeks gestation of pregnancy; O90.81 Anemia of the puerperium; O72.1 Other immediate postpartum hemorrhage; J45.909 Unspecified asthma, uncomplicated; O70.3 Fourth degree perineal laceration during delivery; O71.82 Other specified trauma to perineum and vulva; O76 Abnormality in fetal heart rate and rhythm complicating labor and delivery; Z20.822 Contact with and (suspected) exposure to COVID-19
CPT/HCPCS: 01967; 36415; 36430; 59050; 59200; 59400; 85025; 86850; 86900; 86901; 87635; C9803; P9016; A9270; G0379; J2210; J2540; J2590; S0191